=== PATIENT | female | born 1995 | race Two or more races ===

== ENCOUNTER 2020-08-16 11:58 | Outpatient (CLI) | payer OTHER | END 2020-08-16 12:09 | disposition home or self-care (01) | LOC: RAD 11:58 | PROVIDERS: ATTEND Physical Medicine & Rehabilitation Hospice and Palliative Medicine | DX: M62.838 Other muscle spasm (principal); M54.2 Cervicalgia ==

== ENCOUNTER 2022-09-14 15:06 | Outpatient (CLI) | payer OTHER | END 2022-09-14 15:17 | disposition home or self-care (01) | LOC: RAD 15:06 | DX: M99.01 Segmental and somatic dysfunction of cervical region (principal); M54.2 Cervicalgia; M62.830 Muscle spasm of back; R51.9 Headache, unspecified; M99.02 Segmental and somatic dysfunction of thoracic region; M54.6 Pain in thoracic spine; M99.05 Segmental and somatic dysfunction of pelvic region; M54.59 Other low back pain ==

== ENCOUNTER 2025-05-03 09:41 | Outpatient (CLI) | payer OTHER | END 2025-05-03 09:46 | disposition home or self-care (01) | LOC: SONOGRAMA 09:41 | DX: M85.5 Aneurysmal bone cyst (principal); M54.2 Cervicalgia; M54.12 Radiculopathy, cervical region; M25.562 Pain in left knee ==